=== PATIENT | male | born 1980 | race Two or more races ===

== ENCOUNTER 2023-09-09 14:07 | Inpatient (IN) | payer MEDICAID, OTHER ==
[~2023-09-09] VITALS: Ht 180.3 cm; Wt 92.1 kg
[2023-09-09] MEDS ORDERED: SODIUM CHLORIDE 0.9% 1,000 ML IVB ONE (14:45)
[2023-09-09] MEDS ORDERED: ONDANSETRON HCL 4 MG/2 ML VIAL IV ONE (14:45)
[2023-09-09] MEDS ORDERED: MORPHINE SULFATE 4 MG/ML SYR/VIAL IV ONE (14:45)
[2023-09-09 15:04] LABS: Basophils # (auto) 0 10 ^3/uL (0-0.2); Basophils % (auto) 0.5 % (0.0-2.0); Eosinophils # (auto) 0.1 10 ^3/uL (0-0.8); Eosinophils % (auto) 1.4 % (0.0-7.0); Hematocrit 42.6 % (41.0-53.0); Hemoglobin 14.8 g/dL (13.5-17.5); Lymphocytes # (auto) 1.4 10 ^3/uL (0.4-5.4); Lymphocytes % (auto) 17.1 % (10.0-50.0); Mean Corpuscular Hgb Conc. 34.6 g/dL (32.0-36.0); Mean Corpuscular Volume 86.6 fL (80.0-100.0); Monocytes # (auto) 0.5 10 ^3/uL (0-1.3); Monocytes % (auto) 5.6 % (0.0-12.0); Neutrophils # (auto) 6.3 10 ^3/uL (1.6-8.6); Neutrophils % (auto) 75.4 % (37.0-80.0); Nucleated Red Blood Cells % 0.1 %; Red Blood Cells 4.92 10^6/uL (4.5-5.90); Red Cell Distribution Width 12.8 % (11.8-14.3); White Blood Cell 8.3 10^3/uL (4.4-10.8)
[2023-09-09 15:21] LABS: Urine Bacteria FEW /hpf (None Seen); Urine Blood 2+ /uL (Negative); Urine Clarity Clear (Clear); Urine Color Yellow (Yellow); Urine Mucus FEW (None Seen); Urine Protein, UAD 1+ (Negative); Urine Specific Gravity 1.027 (1.001-1.035); Urine Urobilinogen Normal (Negative); Urine WBC 29 /hpf (0 - 3); Urine WBC Clumps PRESENT /hpf (None Seen); Urine pH 5.5 (5.0-8.0)
[2023-09-09 15:46] LABS: Alanine Aminotransferase 39 U/L (7-40); Albumin 4.7 g/dL (3.2-4.8); Alkaline Phosphatase 151 U/L (46-116); Anion Gap 6 (5-15); Aspartate Aminotransferase 26 U/L (13-40); BUN/Creatinine Ratio 9.6 (10.0-20.0); Bilirubin, Total 0.4 mg/dL (0.2-1.0); Blood Urea Nitrogen 15 mg/dL (9-23); Calcium 9.4 mg/dL (8.7-10.4); Carbon Dioxide 25 mmol/L (20-30); Chloride 106 mmol/L (98-107); Glucose 179 mg/dL (74-106); Potassium 3.6 mmol/L (3.5-5.1); Sodium 137 mmol/L (136-145); Total Protein 7.7 g/dL (5.7-8.2)
[2023-09-09] MEDS ORDERED: cefTRIAXone 1GM/50ML D5W 50 ML IV ONE (16:45)
[2023-09-09] MEDS ORDERED: HYDROcodone-ACET 5/325MG TAB PO PRN (17:15)
[2023-09-09] MEDS ORDERED: ONDANSETRON HCL 4 MG/2 ML VIAL IV PRN (17:15)
[2023-09-09] MEDS ORDERED: KETOROLAC TROMETH 30 MG/ML 1ML VIAL IV ONE (17:15)
[2023-09-09] MEDS ORDERED: TAMSULOSIN HYDROCHLORIDE 0.4 MG CAP PO ONE (17:15)
[2023-09-09] MEDS ORDERED: amLODIPine BESYLATE 5 MG TAB PO ONE (17:15)
[2023-09-09] MEDS ORDERED: ACETAMINOPHEN 325 MG TAB PO PRN (17:15)
[2023-09-09] MEDS ORDERED: TRAM50TA2 PO (17:18)
[2023-09-09] MEDS ORDERED: TAMS0.4C36 PO (17:18)
[2023-09-09] MEDS: TAMSULOSIN HYDROCHLORIDE 0.4 MG CAP PO SCH (17:55)
[2023-09-10] MEDS: SODIUM CHLORIDE 0.9% 1,000 ML IV SCH ×4 (01:47→17:33)
[2023-09-10 05:17] LABS: Alanine Aminotransferase 40 U/L (7-40); Albumin 4.4 g/dL (3.2-4.8); Alkaline Phosphatase 136 U/L (46-116); Anion Gap 6 (5-15); Aspartate Aminotransferase 24 U/L (13-40); BUN/Creatinine Ratio 11.5 (10.0-20.0); Bilirubin, Total 0.3 mg/dL (0.2-1.0); Blood Urea Nitrogen 18 mg/dL (9-23); Calcium 9.2 mg/dL (8.7-10.4); Carbon Dioxide 27 mmol/L (20-30); Chloride 105 mmol/L (98-107); Glucose 104 mg/dL (74-106); Potassium 4.1 mmol/L (3.5-5.1); Sodium 138 mmol/L (136-145); Total Protein 7.5 g/dL (5.7-8.2)
[2023-09-10 05:25] LABS: Basophils # (auto) 0 10 ^3/uL (0-0.2); Basophils % (auto) 0.4 % (0.0-2.0); Eosinophils # (auto) 0.2 10 ^3/uL (0-0.8); Eosinophils % (auto) 2.5 % (0.0-7.0); Hematocrit 39.4 % (41.0-53.0); Hemoglobin 13.6 g/dL (13.5-17.5); Lymphocytes # (auto) 1.5 10 ^3/uL (0.4-5.4); Lymphocytes % (auto) 17.2 % (10.0-50.0); Mean Corpuscular Hemoglobin 30.3 pg (28.0-32.0); Mean Corpuscular Hgb Conc. 34.6 g/dL (32.0-36.0); Mean Corpuscular Volume 87.7 fL (80.0-100.0); Monocytes # (auto) 0.7 10 ^3/uL (0-1.3); Monocytes % (auto) 7.8 % (0.0-12.0); Neutrophils # (auto) 6.5 10 ^3/uL (1.6-8.6); Neutrophils % (auto) 72.1 % (37.0-80.0); Red Blood Cells 4.49 10^6/uL (4.5-5.90); Red Cell Distribution Width 12.7 % (11.8-14.3)
[2023-09-10 07:43] VITALS: PULSE 73; RESP 16; O2SAT 97
[2023-09-10] MEDS: cefTRIAXone 1GM/50ML D5W 50 ML IV SCH (08:38)
[2023-09-10] MEDS: amLODIPine BESYLATE 5 MG TAB PO SCH (09:28)
[2023-09-10] MEDS: KETOROLAC TROMETH 30 MG/ML 1ML VIAL IV PRN ×2 (09:53→18:25)
[2023-09-10 17:30] VITALS: BP 138/82; PULSE 71; RESP 17; TEMP 98.3; O2SAT 98
[2023-09-10] MEDS: TAMSULOSIN HYDROCHLORIDE 0.4 MG CAP PO SCH (17:32)
[2023-09-10 17:37] VITALS: BP 138/82; PULSE 71; RESP 17; TEMP 98.3; O2SAT 98
[2023-09-10] MEDS ORDERED: IBU600T PO (18:15)
[2023-09-10 20:00] VITALS: RESP 18
[2023-09-10 22:00] VITALS: BP 121/75; PULSE 73; RESP 22; TEMP 97.7; O2SAT 98
[2023-09-11] MEDS: SODIUM CHLORIDE 0.9% 1,000 ML IV SCH ×3 (01:36→17:41)
[2023-09-11 05:00] VITALS: BP 116/71; PULSE 79; RESP 22; TEMP 97.9; O2SAT 97
[2023-09-11 06:28] LABS: Basophils # (auto) 0 10 ^3/uL (0-0.2); Basophils % (auto) 0.5 % (0.0-2.0); Eosinophils # (auto) 0.3 10 ^3/uL (0-0.8); Eosinophils % (auto) 4.6 % (0.0-7.0); Hemoglobin 13.1 g/dL (13.5-17.5); Lymphocytes # (auto) 1.5 10 ^3/uL (0.4-5.4); Lymphocytes % (auto) 20.6 % (10.0-50.0); Mean Corpuscular Hemoglobin 29.9 pg (28.0-32.0); Mean Corpuscular Hgb Conc. 34.4 g/dL (32.0-36.0); Mean Corpuscular Volume 86.7 fL (80.0-100.0); Monocytes # (auto) 0.5 10 ^3/uL (0-1.3); Monocytes % (auto) 6.7 % (0.0-12.0); Neutrophils # (auto) 4.9 10 ^3/uL (1.6-8.6); Neutrophils % (auto) 67.6 % (37.0-80.0); Nucleated Red Blood Cells % 0.1 %; Red Blood Cells 4.38 10^6/uL (4.5-5.90); Red Cell Distribution Width 12.6 % (11.8-14.3); White Blood Cell 7.3 10^3/uL (4.4-10.8)
[2023-09-11 07:47] LABS: Chloride 109 mmol/L (98-107); Sodium 140 mmol/L (136-145)
[2023-09-11 07:48] LABS: Anion Gap 5 (5-15); Carbon Dioxide 26 mmol/L (20-30)
[2023-09-11 07:49] LABS: Calcium 8.6 mg/dL (8.5-10.1)
[2023-09-11 07:53] LABS: BUN/Creatinine Ratio 10.1 (10.0-20.0); Blood Urea Nitrogen 13 mg/dL (9-23); Glucose 92 mg/dL (74-106)
[2023-09-11 08:00] VITALS: BP 119/74; PULSE 61; RESP 20; TEMP 98.2; O2SAT 95
[2023-09-11] MEDS: amLODIPine BESYLATE 5 MG TAB PO SCH (10:06)
[2023-09-11] MEDS: cefTRIAXone 1GM/50ML D5W 50 ML IV SCH (10:06)
[2023-09-11] MEDS: KETOROLAC TROMETH 30 MG/ML 1ML VIAL IV PRN ×2 (10:07→17:42)
[2023-09-11 12:00] VITALS: BP 114/73; PULSE 69; RESP 20; TEMP 97.7; O2SAT 93
[2023-09-11 16:00] VITALS: BP 113/74; PULSE 57; RESP 20; TEMP 99.3; O2SAT 97
[2023-09-11] MEDS: TAMSULOSIN HYDROCHLORIDE 0.4 MG CAP PO SCH (17:42)
[2023-09-11 20:00] VITALS: RESP 20; O2SAT 95
[2023-09-11 22:00] VITALS: BP 116/76; PULSE 54; RESP 19; TEMP 98.2; O2SAT 100
[2023-09-12] VITALS (7 sets, daily range): BP systolic 111–137; BP diastolic 75–88; PULSE 58–94; RESP 15–19; TEMP 97.5–98.8; O2SAT 91–98
[2023-09-12] MEDS: SODIUM CHLORIDE 0.9% 1,000 ML IV SCH ×3 (04:07→20:15)
[2023-09-12 07:12] LABS: Basophils # (auto) 0 10 ^3/uL (0-0.2); Basophils % (auto) 0.7 % (0.0-2.0); Eosinophils # (auto) 0.3 10 ^3/uL (0-0.8); Eosinophils % (auto) 5.5 % (0.0-7.0); Hematocrit 36.8 % (41.0-53.0); Hemoglobin 12.7 g/dL (13.5-17.5); Lymphocytes # (auto) 1.9 10 ^3/uL (0.4-5.4); Lymphocytes % (auto) 31.5 % (10.0-50.0); Mean Corpuscular Hgb Conc. 34.5 g/dL (32.0-36.0); Monocytes # (auto) 0.5 10 ^3/uL (0-1.3); Monocytes % (auto) 7.6 % (0.0-12.0); Neutrophils # (auto) 3.4 10 ^3/uL (1.6-8.6); Neutrophils % (auto) 54.7 % (37.0-80.0); Nucleated Red Blood Cells % 0.1 %; Red Blood Cells 4.23 10^6/uL (4.5-5.90); Red Cell Distribution Width 12.7 % (11.8-14.3); White Blood Cell 6.2 10^3/uL (4.4-10.8)
[2023-09-12 07:37] LABS: Anion Gap 6 (5-15); Carbon Dioxide 27 mmol/L (20-30); Chloride 109 mmol/L (98-107); Sodium 142 mmol/L (136-145)
[2023-09-12 07:38] LABS: Calcium 8.8 mg/dL (8.5-10.1)
[2023-09-12 07:43] LABS: BUN/Creatinine Ratio 11.5 (10.0-20.0); Blood Urea Nitrogen 14 mg/dL (9-23); Glucose 85 mg/dL (74-106)
[2023-09-12] MEDS: KETOROLAC TROMETH 30 MG/ML 1ML VIAL IV PRN ×3 (08:59→22:33)
[2023-09-12] MEDS: amLODIPine BESYLATE 5 MG TAB PO SCH (09:00)
[2023-09-12] MEDS: cefTRIAXone 1GM/50ML D5W 50 ML IV SCH (09:00)
[2023-09-12] MEDS: TAMSULOSIN HYDROCHLORIDE 0.4 MG CAP PO SCH (17:06)
[2023-09-13] MEDS: SODIUM CHLORIDE 0.9% 1,000 ML IV SCH (04:13)
[2023-09-13 04:50] VITALS: BP 119/76; PULSE 73; RESP 18; TEMP 97.5; O2SAT 93
[2023-09-13] MEDS: cefTRIAXone 1GM/50ML D5W 50 ML IV SCH (08:25)
[2023-09-13] MEDS: amLODIPine BESYLATE 5 MG TAB PO SCH (08:26)
[2023-09-13 08:30] VITALS: BP 127/81; PULSE 68; RESP 18; TEMP 98.1; O2SAT 94
[2023-09-13 08:34] LABS: Basophils # (auto) 0 10 ^3/uL (0-0.2); Basophils % (auto) 0.7 % (0.0-2.0); Eosinophils # (auto) 0.3 10 ^3/uL (0-0.8); Eosinophils % (auto) 5.4 % (0.0-7.0); Hematocrit 39.5 % (41.0-53.0); Hemoglobin 13.9 g/dL (13.5-17.5); Lymphocytes # (auto) 1.4 10 ^3/uL (0.4-5.4); Lymphocytes % (auto) 24.1 % (10.0-50.0); Mean Corpuscular Hemoglobin 30.5 pg (28.0-32.0); Mean Corpuscular Hgb Conc. 35.2 g/dL (32.0-36.0); Mean Corpuscular Volume 86.6 fL (80.0-100.0); Monocytes # (auto) 0.5 10 ^3/uL (0-1.3); Monocytes % (auto) 8.3 % (0.0-12.0); Neutrophils # (auto) 3.6 10 ^3/uL (1.6-8.6); Neutrophils % (auto) 61.5 % (37.0-80.0); Nucleated Red Blood Cells % 0.1 %; Red Blood Cells 4.56 10^6/uL (4.5-5.90); Red Cell Distribution Width 12.5 % (11.8-14.3); White Blood Cell 5.9 10^3/uL (4.4-10.8)
[2023-09-13 08:41] LABS: Calcium 9.2 mg/dL (8.5-10.1); Chloride 109 mmol/L (98-107); Sodium 142 mmol/L (136-145)
[2023-09-13 08:42] LABS: Anion Gap 7 (5-15); Carbon Dioxide 26 mmol/L (20-30)
[2023-09-13 08:47] LABS: Blood Urea Nitrogen 12 mg/dL (9-23); Glucose 87 mg/dL (74-106)
[2023-09-13] MEDS ORDERED: AML5T PO (09:45)
[2023-09-13] MEDS ORDERED: TAMS-35 PO (09:45)
[2023-09-13] MEDS ORDERED: CEPH250C PO (09:45)
[2023-09-13 12:30] VITALS: BP 131/86; PULSE 70; RESP 19; TEMP 97.4; O2SAT 95
== END 2023-09-13 13:29 | disposition home or self-care (01) | DRG 463 ==
LOC: ER 14:07 → EDSEX 14:07 → OVERFLOW 17:13 → WEST WING 09-10 16:59
PROVIDERS: ADMIT Internal Medicine Geriatric Medicine; ATTEND Student in an Organized Health Care Education/Training Program
DX: N13.6 Pyonephrosis (principal); N17.9 Acute kidney failure, unspecified; I10 Essential (primary) hypertension; N20.2 Calculus of kidney with calculus of ureter; Z80.6 Family history of leukemia; Z83.3 Family history of diabetes mellitus
CPT/HCPCS: 36415; 74018; 74176; 80048; 80053; 81001; 85025; 87081; 87086; 96361; 96365; 96375; G0378; J0696; J1885; J2405

== ENCOUNTER 2025-05-23 13:33 | Emergency (ER) | payer MEDICAID ==
[~2025-05-23] VITALS: Ht 180.3 cm; Wt 100.0 kg
[~2025-05-23 13:33] MED LIST: AML5T PO; CEPH250C PO; TAMS-35 PO; TAMS0.4C39 PO; TRAM50TA2 PO
[2025-05-23] MEDS: SODIUM CHLORIDE 0.9% 1,000 ML IV ONE (13:51)
[2025-05-23] MEDS: TETANUS-DIPTH-ACEL PERTUSSIS 0.5ML SYR Tdap IM ONE (13:57)
[2025-05-23] MEDS: ceFAZolin 1GM/50ML 50 ML IV ONE (13:58)
[2025-05-23 14:07] VITALS: TEMP 98
[2025-05-23 14:08] VITALS: PULSE 100; RESP 19; O2SAT 94
[2025-05-23 14:10] LABS: Hematocrit 46.1 % (41.0-53.0); Hemoglobin 15.7 g/dL (13.5-17.5); Mean Corpuscular Hemoglobin 30.1 pg (28.0-32.0); Mean Corpuscular Volume 88.4 fL (80.0-100.0); Nucleated Red Blood Cells % 0.2 %
--- NOTE | 2025-05-23 14:11 | ED.PDOC ---
Musculoskeletal HPI Comments HPI: Poor Historian. Past Medical History: Past Surgical History: HPI: 45y M who presents to the ED for chief complaint of extremity injury. - pt presents with noted injury and laceration to the L hand - pt states an automatic saw cutting stone and his hand got caught under the blade - pt came to ED and in the ED, noted to have full thickness laceration to top of left hand, actively bleeding, - ED staff had tourniquet placed to left arm - pt noted to have good ROM in the ED - Pt in the ED, has noted heart rate of 104 and 02 sat of 94% on room air but otherwise has stable vitals in the ED including BP 132/84 and RR 18, and temp of 99.1 F Past Medical history: denies Past Surgical history: denies Medications: denies Social History: Denies smoking, ETOH, and drug use. Allergies: NKDA REVIEW OF SYSTEMS: CONSTITUTIONAL: Denies acute: fever, diaphoresis, chills, generalized weakness. HEAD: Denies acute: headache, photophobia Eyes: Denies acute: Double vision, vision loss, eye pain, eye discharge. EARS: Denies acute: tinnitus, hearing loss, ear discharge, ear pain, THROAT: Denies acute: sore throat, swelling, difficulty swallowing , pain with swallowing, change in voice. NECK: Denies acute: neck pain, neck swelling, stiff neck. HEART: Denies acute : chest pain, palpitations, LUNGS: Denies acute: SOB, wheezing, cough, hemoptysis ABDOMEN: Denies acute: abdominal pain, Nausea, Vomiting, diarrhea, melena , hematemesis, hematochezia SKIN: Denies acute: rash, redness, lesions, itchiness. EXTREMITIES: Denies acute: calf pain, numbness, tingling, weakness, Denies acute: Low back pain. Neuro: Denies acute: focal neurological deficit, motor or sensory focal neurological deficit, tremors, seizure like activity, confusion, dizziness, change in mental status, loss of bowel or bladder function, cauda equina like symptoms. : Denies acute: dysuria, hematuria, flank pain, increase in urinary frequency. PSYCH: Denies acute: hallucination, suicidal ideation, homicidal ideation. PHYSICAL EXAM: General: -----[id number]---acute distress, awake and alert. Head: normocephalic, atraumatic. Neck: supple, trachea is midline, no swelling. Throat: Normal phonation. Eyes:, no erythema, no purulent discharge, no proptosis, no icterus. Heart: regular rate, regular rhythm, no significant murmur appreciated. Lungs: no apparent respiratory distress, Able to speak in full sentences. No wheezing, no rhonchi, no crackles. No stridors Clear to auscultation bilaterally. Abdomen: non tender to palpation, non distended, soft, no guarding, no rebound, + bowel sounds. Neuro: Awake, Alert, oriented to name, self, situation, follows commands GCS=15. Speech is normal. Skin: no petechia, no purpura, no cyanosis, non-pale, not jaundice. Lower extremities: --no - Pitting edema no deformity, no focal swelling, no calf TTP. Makes eye contact. moves all four extremities. Face: no apparent facial droop. Ambulating in the ED independently. Evaluation of the left hand: Left dorsal of the hand laceration that is ac tively bleeding. A blood pressure manual cuff was applied to the affected extremity for bleeding controlled. Patient is neurovascularly intact in the affected extremity. Able to oppose all digits with the his thumb. Able to flex and extend all his digits in the affected hand. Y shaped laceration approximately 5 cm in length. ED COURSE: DISCLAIMER: This medical document was created using an electronic medical record system with voice recognition software and computerized dictation system. Although this document has been carefully reviewed, there might still be some phonetic and t ypographical errors. Occasional wrong-word or "sound-alike" substitutions may have occurred due to the inherent limitations of voice recognition software. These areas are purely typographical due to imperfections of the software programs and do not reflect any compromise in the patient's medical care. Please read the chart carefully and recognize, using context, where these substitutions have occurred. Chief Complaint: Laceration Time Seen by MD: 13:46 Primary Care Provider: n/a Reviewed Notes: Medications, Allergies Allergies: Coded Allergies: NO KNOWN ALLERGIES (Unverified , 09/09/23) Home Meds Active Scripts Cephalexin Monohydrate (Cephalexin) 500 Mg Tab, 1 TAB PO TID for 7 Days, #21 TAB Prov:HALIE BAER DO 05/23/25 Cephalexin (KEFLEX CAPSULE) 250 Mg Cp, 1 CAP PO TID for 5 Days, #15 CAP Prov:PRISCILLA DELEON MD 09/13/23 Amlodipine Besylate (NORVASC TABLET) 5 Mg Tb, 5 MG PO DAILY for 30 Days, #30 TAB Prov:PRISCILLA DELEON MD 09/13/23 Tamsulosin Hcl (Flomax) 0.4 Mg Cap, 0.4 MG PO QPM for 30 Days, #30 CAP Prov:PRISCILLA DELEON MD 09/13/23 Reported Medications Tamsulosin Hcl (Tamsulosin Hcl) 0.4 Mg Cap, 1 CAP PO DAILY 09/09/23 Tramadol Hcl (Tramadol Hcl) 50 Mg Tab, 1 TAB PO Q6HPRN PRN 09/09/23 Information Source: Patient Mode of Arrival: Ambulatory Location: Left Past Medical History PAST MEDICAL HISTORY: Kidney Stones Surgical History: Denies all surgeries Family History Family History: Reviewed,noncontributory to illness Social History Smoker: Non-Smoker Alcohol: Occasionally Drugs: Methamphetamine Lives In: Home Was a procedure done? Was a procedure done?: Yes Sedation Sedation?: No Laceration Repair : Location L hand Length 5 cm Laceration Repair Prep: Saline Laceration Repair Wound Comple: epidermis/dermis repair Laceration Repair: Number of sutures (7 stiches, 4.0 ethilon) Informed consent obtained: Yes Risks, benefits, and alternati: Yes Notes normal capillary refill, neurovascularly intact, no bleeding X-Ray, Labs, Meds, VS Vital Signs Date Time Temp Pulse Resp B/P (MAP) Pulse Ox O2 Delivery O2 Flow Rate FiO2 05/23/25 17:14 92 17 135/81 05/23/25 17:06 92 25 135/81 (99) 94 05/23/25 16:19 90 21 140/81 05/23/25 16:00 99 22 140/81 (100) 94 05/23/25 16:00 97 05/23/25 14:36 135/85 05/23/25 14:08 100 19 94 Room Air* 0 21 05/23/25 14:07 98.0 100 19 139/90 (106) 94 98.0 05/23/25 13:42 99.1 104 18 132/84 (100) 94 99.1 Lab Test 05/23/25 13:56 Range/Units White Blood Count 7.6 4.4-10.8 10^3/uL Red Blood Count 5.21 4.5-5.90 10^6/uL Hemoglobin 15.7 13.5-17.5 g/dL Hematocrit 46.1 41.0-53.0 % Mean Corpuscular Volume 88.4 80.0-100.0 fL Mean Corpuscular Hemoglobin 30.1 28.0-32.0 pg Mean Corpuscular Hemoglobin Concent 34.0 32.0-36.0 g/dL Red Cell Distribution Width 13.6 11.8-14.3 % Platelet Count 251 140-450 10^3/uL Mean Platelet Volume 7.8 6.9-10.8 fL Neutrophils (%) (Auto) 69.3 37.0-80.0 % Lymphocytes (%) (Auto) 24.6 10.0-50.0 % Monocytes (%) (Auto) 4.9 0.0-12.0 % Eosinophils (%) (Auto) 0.6 0.0-7.0 % Basophils (%) (Auto) 0.6 0.0-2.0 % Neutrophils # (Auto) 5.2 1.6-8.6 10 ^3/uL Lymphocytes # (Auto) 1.9 0.4-5.4 10 ^3/uL Monocytes # (Auto) 0.4 0-1.3 10 ^3/uL Eosinophils # (Auto) 0 0-0.8 10 ^3/uL Basophils # (Auto) 0 0-0.2 10 ^3/uL Nucleated Red Blood Cells 0.2 % Current Medications Medications (Trade) Dose Ordered Sig/Faustina Route Start Time Stop Time Status Last Admin Sodium Chloride 1,000 ml @ 1,000 mls/hr Q1H ONCE IV 05/23/25 13:45 05/23/25 14:44 DC 05/23/25 13:51 Diphtheria/ Tetanus/Acell Pertussis (Boostrix T-Dap) 0.5 ml ONCE ONCE IM 05/23/25 13:45 05/23/25 13:46 DC 05/23/25 13:57 Cefazolin Sodium 50 ml @ 100 mls/hr ONCE ONCE IV 05/23/25 13:45 05/23/25 14:14 DC 05/23/25 13:58 Fentanyl Citrate 100 mcg ONCE ONCE IV 05/23/25 14:30 05/23/25 14:31 DC 05/23/25 14:36 Lidocaine/ Epinephrine (Lidocaine/ Epinephrine 2% Inj) 5 ml ONCE ONCE IJ 05/23/25 15:15 05/23/25 15:16 DC 05/23/25 17:13 Hydromorphone HCl (Dilaudid Injection) 1 mg ONCE ONCE IV 05/23/25 16:15 05/23/25 16:16 DC 05/23/25 16:19 [place] [address] Ph: [phone] DIAGNOSTIC IMAGING Diagnostic Imaging Report : [id number] Signed PATIENT: SEGUNDO HOPKINS ACCT: [id number] UNIT: [id number] : 1980 LOC: ER ROOM / BED: / AGE / SEX: 45 / M ADM STATUS: REG ER SERVICE 1347 ORDERING PHYSICIAN: HALIE BAER DO PROCEDURE(s): LHAN - L HAND 3V XRAY REASON: laceration ORDER NUMBER(s): [id number], ACCESSION NUMBER(s): [id number] CLINICAL INDICATION: laceration TECHNIQUE: XY L HAND 3V XRAY Comparison: None FINDINGS/IMPRESSION: : There is no evidence of acute fracture or dislocation. Soft tissues are unremarkable. ATED BY: CHARLY DHALIWAL MD DICTATED DATE/TIME: 05/23/251415 SIGNED BY: CHARLY DHALIWAL MD SIGNED DATE/TIME: 05/23/25 141 CC: Patient Education/Counseling: Diagnosis, Treatment Family Education/Counseling: No Family Present Departure 1 Departure Time of Disposition: 16:59 Impression: Primary Impression: Laceration of left hand Disposition: 01 HOME / SELF CARE / HOMELESS Condition: Stable Additional Instructions: Additional instructions: You MUST follow-up with your primary care/family doctor in 1 to 2 days. If you are unable to see your primary care/family doctor, please return to our emergency room for re-assessment and re-evaluation in 1 to 2 days. Return to the emergency room here in our facility or to the nearest ER [facility] if your symptoms change or worsen. CONSULTATIONS: you MUST Follow-up for consultation as soon as possible with: Worker's comp as needed. Adequate fluid hydration. Suture removal in 10 days. Apply [id number] triple ointment antibiotics as instructed daily. Keep the area covered clean. Do not submerge your hand in the next 48 hours. Return for wound check in 48-72 hours. e-Prescriptions Cephalexin Monohydrate (Cephalexin) 500 Mg Tab 1 TAB PO TID for 7 Days, #21 TAB Prov: HALIE BAER DO 05/23/25 Discharged With: Self Critical Care Note Critical Care Time?: No I personally scribed for HALIE BAER DO ([email or web address]) on 05/23/25 at 14:11. Electronically submitted by Jill Ferguson ([email or web address]). I personally scribed for HALIE BAER DO ([email or web address]) on 05/23/25 at 15:23. Electronically submitted by Jill Ferguson ([email or web address]). I personally scribed for HALIE BAER DO ([email or web address]) on 05/23/25 at 17:11. Electronically submitted by Jill Ferguson ([email or web address]). I personally scribed for HALIE BAER DO ([email or web address]) on 05/23/25 at 21:08. Electronically submitted by Jill Ferguson ([email or web address]). HALIE BAER DO May 23, 2025 14:11
--- NOTE | 2025-05-23 14:19 | DVH ---
CLINICAL INDICATION: laceration TECHNIQUE: XY L HAND 3V XRAY Comparison: None FINDINGS/IMPRESSION: : There is no evidence of acute fracture or dislocation. Soft tissues are unremarkable.
[2025-05-23] MEDS: fentaNYL CITRATE 100 MCG/2 ML VL IV ONE (14:36)
[2025-05-23] MEDS ORDERED: LIDOCAINE W/ EPINEPHRINE 2% INJ 20ML VIAL IJ ONE (15:15)
[2025-05-23] MEDS: HYDROmorphone HCL 2 MG/ML VL/or syr IV ONE (16:19)
[2025-05-23] MEDS ORDERED: CEPH500T PO (17:01)
[2025-05-23 17:06] VITALS: O2SAT 94
[2025-05-23] MEDS: LIDOCAINE W/ EPINEPHRINE 2% INJ 20ML VIAL IJ ONE (17:13)
[2025-05-23 17:14] VITALS: BP 135/81; PULSE 92; RESP 17
== END 2025-05-23 17:41 | disposition home or self-care (01) ==
LOC: ER 13:33
DX: S61.412A Laceration without foreign body of left hand, initial encounter (principal); F10.90 Alcohol use, unspecified, uncomplicated; F19.90 Other psychoactive substance use, unspecified, uncomplicated; Z79.899 Other long term (current) drug therapy; Z87.442 Personal history of urinary calculi; W45.8XXA Other foreign body or object entering through skin, initial encounter; Y93.89 Activity, other specified; Y92.89 Other specified places as the place of occurrence of the external cause; Y99.0 Civilian activity done for income or pay; Y90.9 Presence of alcohol in blood, level not specified
CPT/HCPCS: 12002; 36415; 73130; 85025; 86850; 86900; 86901; 90471; 90715; 96365; 96366; 96375; 99284; J0690; J1171; J3010; J7030

== ENCOUNTER 2025-06-04 09:39 | Emergency (ER) | payer MEDICAID ==
[~2025-06-04] VITALS: Ht 180.3 cm; Wt 89.3 kg
[~2025-06-04 09:39] MED LIST changes: +CEPH500T PO
[2025-06-04 09:51] VITALS: BP 127/86; PULSE 74; RESP 19; TEMP 97.7; O2SAT 96
--- NOTE | 2025-06-04 10:05 | ED.PDOC ---
History of Present Illness HPI Comments 45-year-old male presents to the ED for the chief complaint of the suture removal to the dorsal aspect of the 2nd MCP. Patient states that he went to a clinic and notes that the nurse had a hard time removing all the sutures. Previous lacerations noted noted to be healing appropriately, no discharge noted, no foreign body noted. No other associated symptoms at this time. Time Seen by MD: 09:57 Primary Care Provider: n/a Reviewed Notes: Nurses Notes, Medications, Allergies Allergies: Coded Allergies: NO KNOWN ALLERGIES (Unverified , 09/09/23) Home Meds Active Scripts Cephalexin Monohydrate (Cephalexin) 500 Mg Tab, 1 TAB PO TID for 7 Days, #21 TAB Prov:HALIE BAER DO 05/23/25 Cephalexin (KEFLEX CAPSULE) 250 Mg Cp, 1 CAP PO TID for 5 Days, #15 CAP Prov:PRISCILLA DELEON MD 09/13/23 Amlodipine Besylate (NORVASC TABLET) 5 Mg Tb, 5 MG PO DAILY for 30 Days, #30 TAB Prov:PRISCILLA DELEON MD 09/13/23 Tamsulosin Hcl (Flomax) 0.4 Mg Cap, 0.4 MG PO QPM for 30 Days, #30 CAP Prov:PRISCILLA DELEON MD 09/13/23 Reported Medications Tamsulosin Hcl (Tamsulosin Hcl) 0.4 Mg Cap, 1 CAP PO DAILY 09/09/23 Tramadol Hcl (Tramadol Hcl) 50 Mg Tab, 1 TAB PO Q6HPRN PRN 09/09/23 Information Source: Patient Mode of Arrival: Ambulatory Severity: Mild Timing: Days Duration: Intermittent, Days Prehospital treatment: None Past Medical History PAST MEDICAL HISTORY: Kidney Stones Surgical History: Denies all surgeries Family History Family History: Reviewed,noncontributory to illness Social History Smoker: Non-Smoker Alcohol: Occasionally Drugs: Methamphetamine Lives In: Home Constitutional: denies: chills, diaphoresis, fatigue, fever, malaise, sweats, weakness, others EENTM: denies: blurred vision, double vision, ear bleeding, ear discharge, ear drainage, ear pain, ear ringing, eye pain, eye redness, hearing loss, mouth pain, mouth swelling, nasal discharge, nose bleeding, nose congestion, nose pain, photophobia, tearing, throat pain, throat swelling, voice changes, others Respiratory: denies: cough, hemoptysis, orthopnea, SOB at rest, shortness of breath, SOB with excertion, stridor, wheezing, others Cardiovascular: denies: chest pain, dizzy spells, diaphoresis, Dyspnea on exertion, edema, irregular heart beat, left arm pain, lightheadedness, palpitations, PND, syncope, others Gastrointestinal: denies: abdomen distended, abdominal pain, blood streaked bowels, constipated, diarrhea, dysphagia, difficulty swallowing, hematemesis, melena, nausea, poor appetite, poor fluid intake, rectal bleeding, rectal pain, vomiting, others Genitourinary: denies: burning, dysuria, flank pain, frequency, hematuria, incontinence, penile discharge, penile sore, pain, testicle pain, testicle swelling, urgency, others Neurological: denies: dizziness, fainting, headache, left sided numbness, left sided weakness, numbness, paresthesia, pre-existing deficit, right sided numbness, right sided weakness, seizure, speech problems, tingling, tremors, weakness, others Musculoskeletal: denies: back pain, gout, joint pain, joint swelling, muscle pain, muscle stiffness, neck pain, others Integumetry: denies: bruises, change in color, change in hair/nails, dryness, laceration, lesions, lumps, rash, wounds, others Allergic/Immunocompromised: denies: Difficulty Healing, Frequent Infections, Hives, Itching, others Hematologic/Lymphatic: denies: anemia, blood clots, easy bleeding, easy bruising, swollen glands, others Endocrine: denies: excessive hunger, excessive sweating, excessive thirst, excessive urination, flushing, intolerance to cold, intolerance to heat, unexplained weight gain, unexplained weight loss, others Psychiatric: denies: anxiety, bipolar disorder, depression, hopeless, panic disorder, schizophrenia, sleepless, suicidal, others All Other Systems: Reviewed and Negative Physical Exam General Appearance: No Apparent Distress, Normal HEENT: Normal ENT Inspection, Pharynx Normal, TMs Normal Neck: Full Range of Motion, Non-Tender, Normal, Normal Inspection Respiratory: Chest Non-Tender, Lungs Clear, No Accessory Muscle Use, No Respiratory Distress, Normal Breath Sounds Cardiovascular: No Murmur, No Gallop, Regular Rate/Rhythm Breast Exam: Deferred Gastrointestinal: No Organomegaly, Non Tender, No Pulsatile Mass, Normal Bowel Sounds, Soft Genitalia: Deferred Pelvic: Deferred Rectal: Deferred Extremities: No calf tenderness, Normal capillary refill, Normal inspection, Normal range of motion, Non-tender, No pedal edema Musculoskeletal : Location: Left Extremity Location: Finger 2 (Dorsal aspect of the MCP: Linear 0.5 cm wound. Healing appropriately. No visible foreign body. Sutures has been removed. No surrounding erythema. No discharge no drainage. Full range of motion of the MCP. 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 Was a procedure done?: No Differential Dx Considerations may include: wound check X-Ray, Labs, Meds, VS Vital Signs Date Time Temp Pulse Resp B/P (MAP) Pulse Ox O2 Delivery O2 Flow Rate FiO2 06/04/25 09:51 97.7 74 19 127/86 (100) 96 97.7 X-Ray, Labs, Meds, VS Comment 45-year-old male presents to the ED for the chief complaint of the suture removal to the dorsal aspect of the 2nd MCP. Patient arrives alert and oriented, ABC's intact, afebrile, vital signs stable, saturating well in room air Patient is stable for discharge at this time. External notes reviewed. Test results and diagnostic imaging interpreted. All diagnostic findings, discharge care, education and instructions provided Follow-up with PCP in 2 to 3 days Patient verbalized understanding and agreed to treatment plan Vital signs stable, afebrile, no acute distress noted Patient ambulatory with strong steady gait Advised to return precautions for any new or worsening symptoms, return to ER immediately for re-evaluation Patient is aware that the purpose of this visit was for an acute medical emergency requiring emergent stabilization. Chronic conditions, including malignancies have not been ruled out. Patient is instructed to follow up with PCP as directed and discharge instructions for continued care and workup. If unable to arrange follow-up, patient is to return to the emergency department for reassessment. Patient (parent or legal guardian if applicable) was given verbal and written discharge instructions and acknowledges understanding. Additional MDM Review of External, Non-ED records: External records reviewed. Discussion with independent historian (EMS, family) history obtained from the patient/parents (if applicable) at bedside Chronic conditions affecting care: None Social determinants of health affecting care: None Time of 1ST Reevaluation: 09:57 Reevaluation 1ST: Unchanged Patient Education/Counseling: Diagnosis, Treatment, Need For Follow Up Family Education/Counseling: No Family Present SEPSIS Sepsis Screen Vital Signs Date Time Temp Pulse Resp B/P (MAP) Pulse Ox O2 Delivery O2 Flow Rate FiO2 06/04/25 09:51 97.7 74 19 127/86 (100) 96 97.7 Departure 1 Departure Time of Disposition: 10:05 Impression: Primary Impression: Visit for wound check Disposition: HOME / SELF CARE / HOMELESS Condition: Stable Discharged With: Self Critical Care Note Critical Care Time?: No Stability Stability form required: No Heart Score Heart Score: Heart Score Response (Comments) Value History N/A 0 EKG N/A 0 Age N/A 0 Risk Factors N/A 0 Troponin N/A 0 Total 0 I personally scribed for RASHID ACEVEDO NP ([email or web address]) on 06/04/25 at 10:05. Electronically submitted by Prince Bermeo [email or web address]). I personally scribed for RASHID ACEVEDO NP ([email or web address]) on 06/04/25 at 10:06. Electronically submitted by Prince Bermeo [email or web address]). I personally scribed for RASHID ACEVEDO NP ([email or web address]) on 06/04/25 at 10:06. Electronically submitted by Prince Bermeo [email or web address]). RASHID ACEVEDO NP Jun 04, 2025 10:05
== END 2025-06-04 10:59 | disposition home or self-care (01) ==
LOC: ER 09:39
DX: S61.211D Laceration without foreign body of left index finger without damage to nail, subsequent encounter (principal); F19.90 Other psychoactive substance use, unspecified, uncomplicated; F10.90 Alcohol use, unspecified, uncomplicated; Z48.00 Encounter for change or removal of nonsurgical wound dressing; Z87.442 Personal history of urinary calculi; Z79.899 Other long term (current) drug therapy; X58.XXXD Exposure to other specified factors, subsequent encounter; Y90.9 Presence of alcohol in blood, level not specified